=== PATIENT | female | born 1995 | race Hispanic/Latino ===

== ENCOUNTER 2017-08-08 15:25 | Emergency (ER) | payer OTHER, SELFPAY ==
[2017-08-08 16:10] LABS: APPEARANCE,URINE Clear (CLEAR); BILIRUBIN,URINE Negative (NEGATIVE); COLOR,URINE Dark Yellow (YELLOW); GLUCOSE, URINE (UA) Negative (NEGATIVE); KETONES,URINE 15 mg/dL (NEGATIVE); LEUKOCYTE ESTERASE ,URINE Small (NEGATIVE); NITRATE,URINE Negative (NEGATIVE); OCCULT BLOOD,URINE Negative (NEGATIVE); PROTEIN,URINE Negative (NEGATIVE)
[2017-08-08 16:13] LABS: HCG,QUAL RESULT NEGATIVE (NEGATIVE)
[2017-08-08 16:18] LABS: AMPHET/METH SCREEN,URINE NEGATIVE (NEGATIVE); BARBITURATE SCREEN, URINE NEGATIVE (NEGATIVE); BENZODIAZEPINES SCREEN,URINE NEGATIVE (NEGATIVE); CANNABINOID SCREEN,URINE NEGATIVE (NEGATIVE); COCAINE SCREEN,URINE NEGATIVE (NEGATIVE); OPIATE SCREEN,URINE NEGATIVE (NEGATIVE); PHENCYCLIDINE SCREEN,URINE NEGATIVE (NEGATIVE)
[2017-08-08 16:18] LABS: BASOPHILS % (AUTO) 0.9 % (0.0-5.0); EOSINOPHILS % (AUTO) 0.1 % (0.0-8.0); HEMATOCRIT 42.7 % (36-48); LYMPHOCYTES % (AUTO) 11.7 % (21.0-51.0); MEAN CORPUSCULAR HEMOGLOBIN 28.1 pg (27.0-33.0); MEAN CORPUSCULAR HGB CONC 33.5 g/dL (32.0-36.0); MONOCYTES % (AUTO) 4.9 % (3.0-13.0); NEUTROPHILS % (AUTO) 82.4 % (40.0-77.0); PLATELET COUNT (AUTO) 282 K/uL (130-400); RED BLOOD CELL COUNT(AUTO) 5.08 MIL/uL (4.00-5.50); RED CELL DISTRIBUTION WIDTH 13.6 % (11.0-15.5); WHITE BLOOD COUNT (AUTO) 12.1 K/uL (4.8-10.8)
[2017-08-08 16:21] LABS: BACTERIA,URINE Few /HPF (None Seen); MUCUS,URINE Few LPF (None Seen); RBC,URINE 0-1 /HPF (0-1); SQUAMOUS EPITHELIAL CELL,UR Few /HPF (0-2)
[2017-08-08 16:34] LABS: CARBON DIOXIDE 28 mmol/L (21-32); CHLORIDE 107 mmol/L (101-111); CREATININE 0.6 mg/dL (0.5-1.5); GLOMERULAR FILTR. RATE CALC 133 mL/min (>60); GLUCOSE,RANDOM 88 mg/dL (70-105); POTASSIUM 4.5 mmol/L (3.5-5.1); SODIUM SERUM 144 mmol/L (136-145); UREA NITROGEN, BLOOD 14 mg/dL (7-18)
[2017-08-08 16:38] LABS: ALANINE AMINOTRANSFERASE 21 U/L (12-78); ALBUMIN 4.5 g/dL (3.5-5.0); ALCOHOL, BLOOD < 3 mg/dL (0-10); ASPARTATE AMINOTRANSFERASE 15 U/L (10-37); BILIRUBIN,TOTAL 0.7 mg/dL (0.2-1.0); SALICYLATE < 2.8 mg/dL (2.8-20.0); TOTAL PROTEIN, SERUM 7.8 g/dL (6.0-8.3)
[2017-08-08 16:39] LABS: ACETAMINOPHEN < 1 mcg/mL (10-30)
== END 2017-08-08 19:40 | disposition home or self-care (01) ==
LOC: EDH 15:25
DX: F32.9 Major depressive disorder, single episode, unspecified (principal); F41.9 Anxiety disorder, unspecified; F90.9 Attention-deficit hyperactivity disorder, unspecified type; Z88.0 Allergy status to penicillin; Z88.1 Allergy status to other antibiotic agents; Z91.018 Allergy to other foods
CPT/HCPCS: 36415; 80053; 80305; 81001; 81025; 85025; 94760; 99284; G0480 ×2; G0481

== ENCOUNTER → 2019-08-02 | Outpatient (CLI) | payer BC | END | disposition home or self-care (01) | LOC: RAH 11:07 | PROVIDERS: ATTEND Physical Medicine & Rehabilitation | DX: M41.85 Other forms of scoliosis, thoracolumbar region (principal); M41.84 Other forms of scoliosis, thoracic region | CPT/HCPCS: 72082 ==

== ENCOUNTER → 2020-06-08 | Outpatient (CLI) | payer BC ==
[2020-06-08 10:50] LABS: BASOPHILS % (AUTO) 1.5 % (0.0-5.0); EOSINOPHILS % (AUTO) 1.8 % (0.0-8.0); HEMATOCRIT 41.7 % (36-48); LYMPHOCYTES % (AUTO) 34.1 % (21.0-51.0); MEAN CORPUSCULAR HEMOGLOBIN 28.6 pg (27.0-33.0); MEAN CORPUSCULAR HGB CONC 33.6 g/dL (32.0-36.0); MEAN CORPUSCULAR VOLUME 85.1 fL (79-99); MONOCYTES % (AUTO) 8.4 % (3.0-13.0); NEUTROPHILS % (AUTO) 53.8 % (40.0-77.0); PLATELET COUNT (AUTO) 266 K/uL (130-400); RED CELL DISTRIBUTION WIDTH 13.1 % (11.0-15.5); WHITE BLOOD COUNT (AUTO) 7.2 K/uL (4.8-10.8)
[2020-06-08 10:57] LABS: HEMOGLOBIN A1C 5.2 % (4.0-6.0)
[2020-06-08 11:35] LABS: ALBUMIN 4.1 g/dL (3.5-5.0); BILIRUBIN,TOTAL 0.8 mg/dL (0.2-1.0); CREATININE 0.7 mg/dL (0.5-1.5); POTASSIUM 4.4 mmol/L (3.5-5.1); THYROID STIMULATING HORMONE 1.03 uIU/mL (0.36-3.74); TOTAL PROTEIN, SERUM 7.4 g/dL (6.0-8.3)
[2020-06-08 12:24] LABS: APPEARANCE,URINE Clear (CLEAR); BILIRUBIN,URINE Negative (NEGATIVE); COLOR,URINE Dark Yellow (YELLOW); GLUCOSE, URINE (UA) Negative (NEGATIVE); KETONES,URINE Negative (NEGATIVE); LEUKOCYTE ESTERASE ,URINE Trace (NEGATIVE); NITRATE,URINE Negative (NEGATIVE); OCCULT BLOOD,URINE Negative (NEGATIVE); PH,URINE 5.5 (5.0-8.0); PROTEIN,URINE Negative (NEGATIVE)
[2020-06-08 12:31] LABS: AMPHET/METH SCREEN,URINE NEGATIVE (NEGATIVE); BARBITURATE SCREEN, URINE NEGATIVE (NEGATIVE); BENZODIAZEPINES SCREEN,URINE NEGATIVE (NEGATIVE); CANNABINOID SCREEN,URINE NEGATIVE (NEGATIVE); COCAINE SCREEN,URINE NEGATIVE (NEGATIVE); OPIATE SCREEN,URINE NEGATIVE (NEGATIVE); PHENCYCLIDINE SCREEN,URINE NEGATIVE (NEGATIVE)
[2020-06-08 12:52] LABS: HCG,QUAL RESULT NEGATIVE (NEGATIVE)
[2020-06-08 13:08] LABS: BACTERIA,URINE Few /HPF (None Seen); RBC,URINE 0-1 /HPF (0-1); WBC,URINE 0-1 /HPF (0-1)
== END | disposition home or self-care (01) ==
LOC: LAB 09:41
PROVIDERS: ATTEND Psychiatry & Neurology Psychiatry
DX: Z79.899 Other long term (current) drug therapy (principal)
CPT/HCPCS: 36415; 80053; 80061; 80305; 81001; 81025; 82306; 82607; 82746; 83036; 84443; 85025; 93005

== ENCOUNTER → 2021-06-10 | Outpatient (CLI) | payer BC ==
[2021-06-10 10:42] LABS: BILIRUBIN,URINE Negative (NEGATIVE); COLOR,URINE Yellow (YELLOW); GLUCOSE, URINE (UA) Negative (NEGATIVE); KETONES,URINE Negative (NEGATIVE); LEUKOCYTE ESTERASE ,URINE Negative (NEGATIVE); NITRATE,URINE Negative (NEGATIVE); OCCULT BLOOD,URINE Negative (NEGATIVE); PH,URINE 8.5 (5.0-8.0); PROTEIN,URINE Negative (NEGATIVE)
[2021-06-10 10:43] LABS: APPEARANCE,URINE CLEAR (CLEAR)
[2021-06-10 10:44] LABS: BACTERIA,URINE Few /HPF (None Seen); MUCUS,URINE Few LPF (None Seen); RBC,URINE 0-1 /HPF (0-1); SQUAMOUS EPITHELIAL CELL,UR Rare /HPF (0-2); WBC,URINE 0-1 /HPF (0-1)
[2021-06-10 10:44] LABS: BASOPHILS % (AUTO) 1.1 % (0.0-5.0); EOSINOPHILS % (AUTO) 1.8 % (0.0-8.0); HEMATOCRIT 44.8 % (36-48); LYMPHOCYTES % (AUTO) 32.6 % (21.0-51.0); MEAN CORPUSCULAR HEMOGLOBIN 28.8 pg (27.0-33.0); MEAN CORPUSCULAR HGB CONC 32.8 g/dL (32.0-36.0); MEAN CORPUSCULAR VOLUME 87.7 fL (79-99); MONOCYTES % (AUTO) 6.5 % (3.0-13.0); NEUTROPHILS % (AUTO) 57.5 % (40.0-77.0); PLATELET COUNT (AUTO) 265 K/uL (130-400); RED BLOOD CELL COUNT(AUTO) 5.11 MIL/uL (4.00-5.50); RED CELL DISTRIBUTION WIDTH 13.2 % (11.0-15.5); WHITE BLOOD COUNT (AUTO) 6.1 K/uL (4.8-10.8)
[2021-06-10 10:48] LABS: AMPHET/METH SCREEN,URINE NEGATIVE (NEGATIVE); BARBITURATE SCREEN, URINE NEGATIVE (NEGATIVE); BENZODIAZEPINES SCREEN,URINE NEGATIVE (NEGATIVE); CANNABINOID SCREEN,URINE NEGATIVE (NEGATIVE); COCAINE SCREEN,URINE NEGATIVE (NEGATIVE); OPIATE SCREEN,URINE NEGATIVE (NEGATIVE); PHENCYCLIDINE SCREEN,URINE NEGATIVE (NEGATIVE)
[2021-06-10 11:23] LABS: ALBUMIN 4.3 g/dL (3.5-5.0); BILIRUBIN,TOTAL 0.7 mg/dL (0.2-1.0); CREATININE 0.6 mg/dL (0.5-1.5); POTASSIUM 3.9 mmol/L (3.5-5.1); THYROID STIMULATING HORMONE 1.1 uIU/mL (0.36-3.74); TOTAL PROTEIN, SERUM 7.8 g/dL (6.0-8.3)
== END | disposition home or self-care (01) ==
LOC: LAB 09:35
PROVIDERS: ATTEND Psychiatry & Neurology Psychiatry
DX: R00.1 Bradycardia, unspecified (principal); Z79.899 Other long term (current) drug therapy
CPT/HCPCS: 36415; 80053; 80305; 81001; 82306; 82607; 84443; 84703; 85025; 93005

== ENCOUNTER → 2022-11-19 | Outpatient (CLI) | payer BC ==
[2022-11-19 09:03] LABS: APPEARANCE,URINE CLEAR (CLEAR); BILIRUBIN,URINE NEGATIVE (NEGATIVE); COLOR,URINE YELLOW (YELLOW); GLUCOSE, URINE (UA) NEGATIVE (NEGATIVE); KETONES,URINE NEGATIVE (NEGATIVE); LEUKOCYTE ESTERASE ,URINE 25 Leu/uL (NEGATIVE); NITRATE,URINE NEGATIVE (NEGATIVE); OCCULT BLOOD,URINE NEGATIVE (NEGATIVE); PH,URINE 5.5 (5.0-8.0); PROTEIN,URINE 20 mg/dL (NEGATIVE); UROBILINOGEN,URINE 0.2 mg/dL (0.2-1.0)
[2022-11-19 09:05] LABS: ADD UA MICROSCOPIC YES
[2022-11-19 09:06] LABS: HCG,QUALITATIVE URINE NEGATIVE (NEGATIVE)
[2022-11-19 09:12] LABS: BACTERIA,URINE RARE /HPF (None Seen); MUCUS,URINE MOD LPF (None Seen); SQUAMOUS EPITHELIAL CELL,UR FEW /HPF (0-2)
[2022-11-19 09:19] LABS: HEMOGLOBIN A1C 5.2 % (4.0-6.0)
[2022-11-19 09:30] LABS: BASOPHILS # (AUTO) 0.09 K/uL (0.00-0.20); BASOPHILS % (AUTO) 1.2 % (0.0-5.0); EOSINOPHILS # (AUTO) 0.16 K/uL (0.00-0.70); EOSINOPHILS % (AUTO) 2.2 % (0.0-8.0); HEMATOCRIT 44.3 % (36-48); IMMATURE GRANULOCYTE ABSOLUTE 0.03 K/uL (0-1); LYMPHOCYTES # (AUTO) 2.2 K/uL (1.0-4.8); LYMPHOCYTES % (AUTO) 29.6 % (21.0-51.0); MEAN CORPUSCULAR HEMOGLOBIN 28.8 pg (27.0-33.0); MEAN CORPUSCULAR HGB CONC 33.4 g/dL (32.0-36.0); MEAN CORPUSCULAR VOLUME 86.4 fL (79-99); MONOCYTES # (AUTO) 0.6 K/uL (0.1-1.0); MONOCYTES % (AUTO) 7.9 % (3.0-13.0); NEUTROPHILS # (AUTO) 4.3 K/uL (1.8-7.7); NEUTROPHILS % (AUTO) 58.7 % (40.0-77.0); PLATELET COUNT (AUTO) 268 K/uL (130-400); RED BLOOD CELL COUNT(AUTO) 5.13 MIL/uL (4.00-5.50); RED CELL DISTRIBUTION WIDTH 13.6 % (11.0-15.5); WHITE BLOOD COUNT (AUTO) 7.3 K/uL (4.8-10.8)
[2022-11-19 09:31] LABS: AMPHET/METH SCREEN,URINE NEGATIVE (NEGATIVE); BARBITURATE SCREEN, URINE NEGATIVE (NEGATIVE); BENZODIAZEPINES SCREEN,URINE NEGATIVE (NEGATIVE); CANNABINOID SCREEN,URINE NEGATIVE (NEGATIVE); COCAINE SCREEN,URINE NEGATIVE (NEGATIVE); OPIATE SCREEN,URINE NEGATIVE (NEGATIVE); PHENCYCLIDINE SCREEN,URINE NEGATIVE (NEGATIVE)
[2022-11-19 09:46] LABS: ALBUMIN 4.2 g/dL (3.5-5.0); BILIRUBIN,TOTAL 0.5 mg/dL (0.2-1.0); CREATININE 0.6 mg/dL (0.5-1.5); POTASSIUM 4.4 mmol/L (3.5-5.1); THYROID STIMULATING HORMONE 1.76 uIU/mL (0.36-3.74); TOTAL PROTEIN, SERUM 7.8 g/dL (6.0-8.3)
== END | disposition home or self-care (01) ==
LOC: LAB 08:09
PROVIDERS: ATTEND Psychiatry & Neurology Psychiatry
DX: Z79.899 Other long term (current) drug therapy (principal)
CPT/HCPCS: 36415; 80053; 80061; 80305; 81001; 81025; 82306; 82607; 82746; 83036; 84443; 85025; 93005

== ENCOUNTER → 2024-02-22 | Outpatient (CLI) | payer BC ==
[2024-02-22 11:04] LABS: BASOPHILS # (AUTO) 0.09 K/uL (0.00-0.20); BASOPHILS % (AUTO) 1.2 % (0.0-5.0); EOSINOPHILS # (AUTO) 0.12 K/uL (0.00-0.70); EOSINOPHILS % (AUTO) 1.5 % (0.0-8.0); HEMATOCRIT 43.6 % (36-48); IMMATURE GRANULOCYTE ABSOLUTE 0.05 K/uL (0-1); LYMPHOCYTES % (AUTO) 25.4 % (21.0-51.0); MEAN CORPUSCULAR HEMOGLOBIN 29.1 pg (27.0-33.0); MEAN CORPUSCULAR HGB CONC 32.8 g/dL (32.0-36.0); MEAN CORPUSCULAR VOLUME 88.8 fL (79-99); MONOCYTES # (AUTO) 0.6 K/uL (0.1-1.0); MONOCYTES % (AUTO) 8.1 % (3.0-13.0); NEUTROPHILS # (AUTO) 4.9 K/uL (1.8-7.7); NEUTROPHILS % (AUTO) 63.2 % (40.0-77.0); PLATELET COUNT (AUTO) 263 K/uL (130-400); RED BLOOD CELL COUNT(AUTO) 4.91 MIL/uL (4.00-5.50); RED CELL DISTRIBUTION WIDTH 13.2 % (11.0-15.5); WHITE BLOOD COUNT (AUTO) 7.8 K/uL (4.8-10.8)
[2024-02-22 11:08] LABS: HEMOGLOBIN A1C 5.1 % (4.0-6.0)
--- NOTE | 2024-02-22 11:18 | EKG ---
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
[2024-02-22 11:27] LABS: HCG,QUALITATIVE URINE NEGATIVE (NEGATIVE)
[2024-02-22 11:32] LABS: AMPHET/METH SCREEN,URINE NEGATIVE (NEGATIVE); BARBITURATE SCREEN, URINE NEGATIVE (NEGATIVE); BENZODIAZEPINES SCREEN,URINE NEGATIVE (NEGATIVE); CANNABINOID SCREEN,URINE NEGATIVE (NEGATIVE); COCAINE SCREEN,URINE NEGATIVE (NEGATIVE); OPIATE SCREEN,URINE NEGATIVE (NEGATIVE); PHENCYCLIDINE SCREEN,URINE NEGATIVE (NEGATIVE)
[2024-02-22 11:40] LABS: ALBUMIN 4.3 g/dL (3.5-5.0); CREATININE 0.7 mg/dL (0.5-1.0); POTASSIUM 4.1 mmol/L (3.5-5.1); THYROID STIMULATING HORMONE 0.93 uIU/mL (0.36-3.74); TOTAL PROTEIN, SERUM 7.3 g/dL (6.0-8.3)
== END | disposition home or self-care (01) ==
LOC: LAB 10:21
PROVIDERS: ATTEND Psychiatry & Neurology Psychiatry
DX: Z79.899 Other long term (current) drug therapy (principal)
CPT/HCPCS: 36415; 80053; 80061; 80305; 81025; 82306; 82607; 82746; 83036; 84443; 85025; 93005

== ENCOUNTER → 2024-06-07 | Outpatient (CLI) | payer BC ==
--- NOTE | 2024-06-07 10:18 | EKG ---
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
[2024-06-07 10:26] LABS: BASOPHILS # (AUTO) 0.08 K/uL (0.00-0.20); EOSINOPHILS # (AUTO) 0.11 K/uL (0.00-0.70); EOSINOPHILS % (AUTO) 1.4 % (0.0-8.0); IMMATURE GRANULOCYTE ABSOLUTE 0.04 K/uL (0-1); LYMPHOCYTES # (AUTO) 1.8 K/uL (1.0-4.8); LYMPHOCYTES % (AUTO) 22.6 % (21.0-51.0); MEAN CORPUSCULAR HEMOGLOBIN 29.4 pg (27.0-33.0); MEAN CORPUSCULAR HGB CONC 33.2 g/dL (32.0-36.0); MEAN CORPUSCULAR VOLUME 88.5 fL (79-99); MONOCYTES # (AUTO) 0.6 K/uL (0.1-1.0); MONOCYTES % (AUTO) 7.6 % (3.0-13.0); NEUTROPHILS # (AUTO) 5.2 K/uL (1.8-7.7); NEUTROPHILS % (AUTO) 66.9 % (40.0-77.0); PLATELET COUNT (AUTO) 250 K/uL (130-400); RED BLOOD CELL COUNT(AUTO) 4.97 MIL/uL (4.00-5.50); RED CELL DISTRIBUTION WIDTH 13.8 % (11.0-15.5); WHITE BLOOD COUNT (AUTO) 7.8 K/uL (4.8-10.8)
[2024-06-07 10:34] LABS: AMPHET/METH SCREEN,URINE NEGATIVE (NEGATIVE); BARBITURATE SCREEN, URINE NEGATIVE (NEGATIVE); BENZODIAZEPINES SCREEN,URINE NEGATIVE (NEGATIVE); CANNABINOID SCREEN,URINE NEGATIVE (NEGATIVE); COCAINE SCREEN,URINE NEGATIVE (NEGATIVE); OPIATE SCREEN,URINE NEGATIVE (NEGATIVE); PHENCYCLIDINE SCREEN,URINE NEGATIVE (NEGATIVE)
[2024-06-07 10:47] LABS: HCG,QUALITATIVE URINE NEGATIVE (NEGATIVE)
[2024-06-07 11:07] LABS: ALBUMIN 3.9 g/dL (3.5-5.0); BILIRUBIN,TOTAL 0.6 mg/dL (0.2-1.0); CREATININE 0.7 mg/dL (0.5-1.0); POTASSIUM 3.9 mmol/L (3.5-5.1); THYROID STIMULATING HORMONE 1.24 uIU/mL (0.36-3.74); TOTAL PROTEIN, SERUM 7.1 g/dL (6.0-8.3)
== END | disposition home or self-care (01) ==
LOC: LAB 09:18
PROVIDERS: ATTEND Psychiatry & Neurology Psychiatry
DX: Z79.899 Other long term (current) drug therapy (principal)
CPT/HCPCS: 36415; 80053; 80061; 80305; 81025; 82306; 82607; 82746; 84443; 85025; 93005

== ENCOUNTER 2025-03-24 12:05 | Emergency (ER) | payer SELFPAY ==
[~2025-03-24] VITALS: Ht 160 cm; Wt 53.5 kg
--- NOTE | 2025-03-24 12:13 | ERN ---
ED Note History of Present Illness Stated Complaint: CHEST PAIN AND SOB Chief Complaint: Chest Wall Pain Time Seen by MD: 12:12 Time Seen by Midlevel: 12:12 Dictation: Ms. Rai is a 29 year old female with history of SVT/ablation who presented to the Emergency Department this afternoon for evaluation of chest pain. She states that has been experiencing intermittent palpitations for which she was seen earlier at another hospital yesterday in [place]. She states that they told her that it was most likely anxiety. She states that she feels anxious, disoriented, dizzy, and has a pain vibrating sensation to her left j[address]. She denies fever, chills, shortness of breath, cough, edema, abdominal pain, nausea, vomiting, hematemesis, constipation, diarrhea, melena, hematochezia, dysuria, headache, or focal weakness/paresthesia Allergies: Coded Allergies: Penicillins (Unverified Allergy, Unknown, 03/24/25) cephalexin (Unverified Allergy, Unknown, 03/24/25) Home Meds Active Scripts Nitrofurantoin Macrocrystal (Nitrofurantoin) 100 Mg Capsule, 1 CAP PO BID for 7 Days, #14 CAP 0 Refills Prov:WILFREDO AN RUBBER EXTRUSION MACHINE OPERATOR 03/24/25 Past Medical History Past Medical History: Anxiety, Other (SVT) Surgical History: Other (Cardiac ablation) PSYCH History: anxiety RN Note Reviewed/Agreed w/PFSH: Yes Review of System Dictation REVIEW OF SYSTEMS: CONSTITUTIONAL: Patient denies fevers, chills, sweats and weight changes. EYES: Patient denies any visual symptoms. EARS, NOSE, AND THROAT: No difficulties with hearing. No symptoms of rhinitis or sore throat. CARDIOVASCULAR: Reports intermittent palpitations for which she was seen earlier at another hospital yesterday in [place]. She states that they told her that it was most likely anxiety. She states that she feels anxious, disoriented, dizzy, and has a pain vibrating sensation to her left chest. RESPIRATORY: No dyspnea on exertion, no wheezing or cough. GI: No nausea, vomiting, diarrhea, constipation, abdominal pain, hematochezia or melena. : No urinary hesitancy or dribbling. No nocturia or urinary frequency. No abnormal urethral discharge. MUSCULOSKELETAL: No myalgias or arthralgias. NEUROLOGIC: No chronic headaches, no seizures. Patient denies numbness, tingling or weakness. Reports dizziness. PSYCHIATRIC: Patient denies problems with mood disturbance. Reports feeling anxious. ENDOCRINE: No excessive urination or excessive thirst. DERMATOLOGIC: Patient denies any rashes or skin changes. Initial Vital Sign VS Vital Signs Date Time Temp Pulse Resp B/P (MAP) Pulse Ox O2 Delivery O2 Flow Rate FiO2 03/24/25 12:07 98.2 16 14 142/71 99 Room Air 0 03/24/25 14:21 21 Physical Exam Dictation Vital signs: Reviewed. Afebrile Constitutional: No acute distress. Non-toxic appearing. Head/Face: Normocephalic, atraumatic. Eyes: Periorbital areas with no swelling, redness, or edema. Lids and lashes are normal. Conjunctival injection is absent. Sclera anicteric. Pupils equal, round, reactive to light. ENT: Pinnas intact and no signs of trauma or erythema. Ear canals clear and no discharge. TMs no erythema. No nasal discharge or bleeding noted. Oropharynx with no exudate, redness, swelling, masses, exudates, or evidence of obstruction. Uvula midline. Mucous membranes moist. Neck: Trachea midline, no masses palpated, and no cervical lymphadenopathy. No swelling. Supple, full range of motion. Chest/Axilla: No tenderness, no crepitus, no paradoxical movement, no retractions. Cardiovascular: Regular rate, regular rhythm, no murmur, no gallops. Symmetric pulses. No peripheral edema. Normotensive. Lead EKG reflects a sinus rhythm without ST-elevation or depression. Respiratory: Respirations even and unlabored. Lung sounds clear; no wheezes, rales or rhonchi. Room air SpO2 99% Gastrointestinal: Inspection is normal. No distention is appreciated. Bowel sounds are normal. No mass or organomegaly . There is no tenderness. No rebound. No rigidity. No voluntary or involuntary guarding. No Velazquez's sign. Neurological: Normal speech, gross motor function intact, gross sensory function intact. No focal weakness/Paresthesia. Musculoskeletal/Extremities: All extremities have full range of motion, no pain or tenderness on palpation. Symmetric pulses. Integumentary: Intact. Skin is normal color, warm and dry. Cap refill less than 3 seconds. Results (Laboratory/Radiology) Laboratory/Radiology Laboratory Tests Test 03/24/25 12:30 03/24/25 12:45 Urine Color YELLOW (YELLOW) Urine Appearance CLOUDY (CLEAR) H Urine pH 7.0 (5.0-8.0) Urine Specific Hydes 1.026 (1.001-1.031) Urine Protein 30 mg/dL (NEGATIVE) H Urine Glucose (UA) 150 mg/dL (NEGATIVE) H Urine Ketones NEGATIVE mg/dL (NEGATIVE) Urine Occult Blood NEGATIVE (NEGATIVE) Urine Nitrate NEGATIVE (NEGATIVE) Urine Bilirubin NEGATIVE mg/dL (NEGATIVE) Urine Urobilinogen 0.2 mg/dL (0.2-1.0) Urine Leukocyte Esterase 75 Mayo/uL (NEGATIVE) H Urine RBC 2-5 /HPF (0-1) H Urine WBC 6-10 /HPF (0-1) H Urine Squamous Epithelial Cells MANY /HPF (0-2) Urine Bacteria RARE /HPF (None Seen) Urine HCG, Qualitative NEGATIVE (NEGATIVE) Urine Opiates Screen POSITIVE (NEGATIVE) H Urine Barbiturates Screen NEGATIVE (NEGATIVE) Urine Phencyclidine Screen NEGATIVE (NEGATIVE) Urine Amphetamines Screen NEGATIVE (NEGATIVE) Urine Benzodiazepines Screen NEGATIVE (NEGATIVE) Urine Cocaine Screen NEGATIVE (NEGATIVE) Urine Marijuana (THC) Screen NEGATIVE (NEGATIVE) White Blood Count 12.4 K/uL (4.8-10.8) H Red Blood Count 5.16 MIL/uL (4.00-5.50) Hemoglobin 15.4 g/dL (12.0-16.0) Hematocrit 46.0 % (36-48) Mean Corpuscular Volume 89.1 fL (79-99) Mean Corpuscular Hemoglobin 29.8 pg (27.0-33.0) Mean Corpuscular Hemoglobin Concent 33.5 g/dL (32.0-36.0) Red Cell Distribution Width 13.5 % (11.0-15.5) Platelet Count 314 K/uL (130-400) Mean Platelet Volume 9.9 fL (7.5-10.5) Immature Granulocyte % (Auto) 0.7 % (0-1) Neutrophils (%) (Auto) 94.5 % (40.0-77.0) H Lymphocytes (%) (Auto) 4.1 % (21.0-51.0) L Monocytes (%) (Auto) 0.4 % (3.0-13.0) L Eosinophils (%) (Auto) 0.0 % (0.0-8.0) Basophils (%) (Auto) 0.3 % (0.0-5.0) Neutrophils # (Auto) 11.8 K/uL (1.8-7.7) H Lymphocytes # (Auto) 0.5 K/uL (1.0-4.8) L Monocytes # (Auto) 0.1 K/uL (0.1-1.0) Eosinophils # (Auto) 0.00 K/uL (0.00-0.70) Basophils # (Auto) 0.04 K/uL (0.00-0.20) Absolute Immature Granulocyte (auto 0.09 K/uL (0-1) Nucleated Red Blood Cells 0.0 % (0.0-0.19) White Cell Morphology Comment See comments Sodium Level 136 mmol/L (136-145) Potassium Level 3.8 mmol/L (3.5-5.1) Chloride Level 103 mmol/L (101-111) Carbon Dioxide Level 27 mmol/L (21-32) Blood Urea Nitrogen 12 mg/dL (7-18) Creatinine 0.8 mg/dL (0.5-1.0) Glomerular Filtration Rate Calc 102 mL/min (>90) Random Glucose 117 mg/dL (70-105) H Total Calcium 8.9 mg/dL (8.5-10.1) Magnesium Level 2.00 mg/dL (1.80-2.40) Troponin I High Sensitivity < 4 ng/L (4-50) L Labs Reviewed?: Yes EKG Comment: EKG Interpretation: Time Reviewed: 1154 Ventricular rate: 86 bpm [place] Interval: 126 ms QRS duration: [address] segment elevation or depression. Clinical impression: Sinus rhythm EKG Reviewed and interpreted by Dr. Israel Clayton ED Course ED Course Orders Procedure Category Date Status Time 12 Lead Ekg Tracing- EKG 03/24/25 Complete Technical 12:07 ,Urine Test LAB 03/24/25 Complete 12:12 Cbc With Differential LAB 03/24/25 Complete 12: Basic Metabolic Panel LAB 03/24/25 Complete 12:27 Magnesium LAB 03/24/25 Complete 12: Troponin I High LAB 03/24/25 Complete Sensitivity 12:27 Urinalysis Profile LAB 03/24/25 Complete 12:27 Culture Urine EUGENIA 03/24/25 In Process 13:08 Drug Screen Urine LAB 03/24/25 Complete 13:37 Ceftriaxone 1g Vial PHA 03/24/25 Complete (Rocephine 1g Inj) 14:00 0.9% Nacl 500ml PHA 03/24/25 Complete Iv.Soln (Ns 500ml 14:00 Ketorolac PHA 03/24/25 Complete Tromethamine 15mg/Ml 14:00 Nitrofurantoin PHA 03/24/25 Complete Monohyd/M-Cryst 14:30 Nitrofurantoin PHA 03/24/25 Complete Monohyd/M-Cryst 14:06 Current Medications Medications (Trade) Dose Ordered Sig/Ravindra Route PRN Reason Start Time Stop Time Status Last Admin Dose Admin Ceftriaxone Sodium (ROCEphine 1G INJ) 1 gm ONCE ONCE IVPB 03/24/25 14:00 03/24/25 14:05 DC Ketorolac Tromethamine (toRADol) 15 mg ONCE ONCE IV 03/24/25 14:00 03/24/25 14:01 DC 03/24/25 14:11 Nitrofurantoin Macrocrystals (Macrobid) 100 mg ONCE ONCE PO 03/24/25 14:30 03/24/25 14:31 DC 03/24/25 14:12 Nitrofurantoin Macrocrystals (Macrobid) 100 mg STK-MED ONCE PO 03/24/25 14:06 03/24/25 14:06 DC Sodium Chloride 500 ml @ 0 mls/hr ONCE ONCE IV 03/24/25 14:00 03/24/25 14:01 DC 03/24/25 14:12 Vital Signs Date Time Temp Pulse Resp B/P (MAP) Pulse Ox O2 Delivery O2 Flow Rate FiO2 03/24/25 14:21 97.9 88 14 145/79 99 Room Air* 0 21 03/24/25 12:07 98.2 16 14 142/71 99 Room Air 0 Uneventful ED course. Twelve lead EKG demonstrated normal sinus rhythm without acute ST segment changes or arrhythmia. Laboratory findings as noted below. WBCs 12.4, glucose 117, and troponin negative. Urinalysis cloudy with positive leukocyte esterase, protein, glucose and 6-9 WBCs. Urine test is negative. Findings were concerning for urinary tract infection, which may be contributing to her symptoms. There was no evidence of acute coronary syndrome identified. Patient was treated with normal saline 500 mL IV bolus, nitrofurantoin and a dose of IV Toradol for chest wall pain. Following treatment, patient reported improvement of symptoms. Given reassuring cardiac evaluation, negative troponin, normal EKG and improvement with treatment, patient was deemed stable for discharge with outpatient follow up. Patient remained clinically stable throughout ED course without evidence of arrhythmia or cardiac ischemia. Medical Decision Making MDM MDM: Differential diagnosis: Arrhythmia/SVT, ACS, electrolyte derangement, anemia, , dehydration Rationale: Tests considered and ordered secondary to shared decision making include: , EKG Previous outside records reviewed: Old ER visits. Risk of complication and/or morbidity or mortality of patient management: None Medications-Per medication reconciliation Need for hospitalization: Patient does not meet criteria for hospitalization. Need for emergency major/minor surgery: No There are no social concerns with this patient. Prescription drug management: Nitrofurantoin Prescriptions will include symptomatic care Patient's prior external medical records from other ER visits were reviewed by me as indicated. Prior testing and results from previous visits were reviewed. Prior tests were taken into account with medical decision making and resource utilization, independent historian/historians were used to obtain complete medical history. I independently interpreted the test that were performed, results were reviewed by me and considered findings on radiology if ordered. Medical management and examination interpretation discussions were had by me with other qualified healthcare professionals as indicated for the patient's care. DX & DISP Disposition: Discharge Departure Impression: Primary Impression: Palpitations Additional Impressions: Chest wall pain, Anxiety, Dehydration, UTI (urinary tract infection) Condition: Stable Scripts Nitrofurantoin Macrocrystal (Nitrofurantoin) 100 Mg Capsule 1 CAP PO BID for 7 Days, #14 CAP 0 Refills Prov: WILFREDO AN Meliton ABEL 03/24/25 Additional Instructions: Continue antibiotic with nitrofurantoin twice daily x7 days. Take until completed regardless of your feeling better. You may take [id number] Tylenol or ibuprofen as needed for chest wall pain. Drink plenty of fluids to stay hydrated. Resume activities as tolerated. Avoid strenuous activity until symptoms have fully resolved. Follow up with your primary care provider within the next few days to review urine culture results and ensure infection is improving. 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 You may need outpatient cardiac monitoring. Return to the emergency department immediately if you develop any of the following: Chest pain/pressure/tightness, palpitations/rapid heart rate, fainting/loss of consciousness, worsening dizziness/confusion, shortness of breath, fever/chills/flank pain, persistent vomiting. Cardiac testing today was reassuring and there was no evidence of heart attack. Your symptoms may be related to infection, dehydration or noncardiac causes. Close outpatient follow up is important given your cardiac history. Referrals: Carter CID MD (PCP) Time of Disposition: 13:50 I performed a substantive portion of the visit. I have reviewed and personally made and approve the management plan that is documented in the notes by myself with JJ/resident. I acknowledged full responsibility for the patient's management plan. WILFREDO AN Mar 24, 2025 12:13 MARYJANE CLAYTON DO Mar 24, 2025 18:03
--- NOTE | 2025-03-24 12:40 | EKG ---
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
[2025-03-24 12:50] LABS: APPEARANCE,URINE CLOUDY (CLEAR); GLUCOSE, URINE (UA) 150 mg/dL (NEGATIVE); LEUKOCYTE ESTERASE ,URINE 75 Leu/uL (NEGATIVE); NITRATE,URINE NEGATIVE (NEGATIVE); OCCULT BLOOD,URINE NEGATIVE (NEGATIVE)
[2025-03-24 13:08] LABS: ADD UA MICROSCOPIC YES
[2025-03-24 13:09] LABS: CREATININE 0.8 mg/dL (0.5-1.0); GLOMERULAR FILTR. RATE CALC 102.0 mL/min (>90); GLUCOSE,RANDOM 117.0 mg/dL (70-105); SODIUM SERUM 136.0 mmol/L (136-145); UREA NITROGEN, BLOOD 12.0 mg/dL (7-18)
[2025-03-24 13:10] LABS: SQUAMOUS EPITHELIAL CELL,UR MANY /HPF (0-2)
[2025-03-24 13:22] LABS: IMMATURE GRANULOCYTE ABSOLUTE 0.09 K/uL (0-1); NUCLEATED RED BLOOD CELLS 0.0 % (0.0-0.19); PLATELET COUNT (AUTO) 314 K/uL (130-400); RED BLOOD CELL COUNT(AUTO) 5.16 MIL/uL (4.00-5.50); RED CELL DISTRIBUTION WIDTH 13.5 % (11.0-15.5); WHITE BLOOD COUNT (AUTO) 12.4 K/uL (4.8-10.8)
[2025-03-24] MEDS ORDERED: NITR100C PO (13:49)
[2025-03-24 13:51] LABS: AMPHET/METH SCREEN,URINE NEGATIVE (NEGATIVE); BARBITURATE SCREEN, URINE NEGATIVE (NEGATIVE); CANNABINOID SCREEN,URINE NEGATIVE (NEGATIVE); COCAINE SCREEN,URINE NEGATIVE (NEGATIVE)
[2025-03-24] MEDS: 0.9% NACL 500ML IV.SOLN 500 ML IV ONE (14:12)
[2025-03-24] MEDS: NITROFURANTOIN MONOHYD/M-CRYST 100 MG CAPSULE PO ONE ×2 (14:12)
--- NOTE | 2025-03-24 14:16 | NUR ---
patient report given to nurse Thacker with [facility]
[2025-03-24 14:21] VITALS: BP 145/79; PULSE 88; RESP 14; TEMP 97.9; O2SAT 99
== END 2025-03-24 14:31 | disposition home or self-care (01) ==
LOC: EDH 12:05
DX: R00.2 Palpitations (principal); R07.89 Other chest pain; Z88.0 Allergy status to penicillin; F41.9 Anxiety disorder, unspecified; E86.0 Dehydration; N39.0 Urinary tract infection, site not specified; Z88.1 Allergy status to other antibiotic agents
CPT/HCPCS: 99284; 96374; 83735; 84484; 80048; 80305; 85025; 87086; 81001; 81025; 36415; 93005; J1885; J7040